=== PATIENT | female | born 1955 | race Caucasian/White ===

== ENCOUNTER → 2016-12-15 | Outpatient (CLI) | payer OTHER | END | disposition home or self-care (01) | LOC: LAB.O 08:28 | PROVIDERS: ATTEND Internal Medicine Hematology & Oncology | DX: C7A.00 Malignant carcinoid tumor of unspecified site (principal) ==

== ENCOUNTER → 2017-05-09 | Outpatient (CLI) | payer OTHER ==
--- NOTE | 2017-05-09 12:54 | MRI ---
EXAM DESCRIPTION: Thoracic Spine w/o Contrast CLINICAL HISTORY: 62 years, Female, UPPER BACK PAIN, PAIN IN THORACIC SPINE , difficulty walking COMPARISON: Plain radiographs the 20th FINDINGS: Sagittal and axial sequences. There is bone marrow edema in T8 and T9 partial compression here. The T8 vertebral body anterior height about 1.3 cm versus about 1.8 cm at T7. Compression of T9 vertebral bodies predominantly midportion which is compressed to about 8 mm versus about 19 mm comparable region at T10 . Some mild bone marrow edema present in T1 without compressive injury identified. This is nonspecific. Other thoracic vertebral bodies and cord have normal signal characteristics. Minimal narrowing and bulge T7-8. The posterior cortex of the inferior T9 vertebral body is buckled about 2 mm with slight flattening of the thecal sac. Other disc spaces within normal limits. IMPRESSION: 1. Subacute compression injuries of T8 and T9, as discussed above. 2. The posterior inferior cortex of T9 is retropulsed about 2 mm with slight flattening of the subarachnoid space. There is also some mild degenerative disc changes particularly T7-8 3. Some nonspecific mild marrow edema T1, without compression, may represent a subclinical injury Electronically signed by: Calixto Lyons MD 05/09/2017 12:54 PM CDT
== END | disposition home or self-care (01) ==
LOC: MRI 09:59
PROVIDERS: ATTEND Family Medicine
DX: M51.34 Other intervertebral disc degeneration, thoracic region (principal)

== ENCOUNTER 2017-05-20 10:14 | Inpatient (IN) | payer OTHER ==
[2017-05-20] MEDS ORDERED: ACETAMINOPHEN W/COD #3 TAB 1 EA TAB PO ONE (10:36)
[2017-05-20] MEDS ORDERED: CYCLOBENZAPRINE HCL 10 MG TAB PO ONE (10:36)
--- NOTE | 2017-05-20 10:50 | ED.PDOC ---
History of Present Illness - General Chief Complaint: Back Pain or Injury Stated Complaint: back pain Time Seen by Provider: 05/20/17 10:36 Source: patient, RN notes reviewed, Vital Signs reviewed, family, EMS Exam Limitations: no limitations - History of Present Illness Initial Comments: Patient presents to ER via EMS due to back pain. She was diagnosed with a compression fracture of T8 & T9 by MRI 2 weeks ago. She has been referred for a kyphoplasty but has not heard back yet. She has noticed progressively worsening back pain extending down into her low back over the past week. She has been having a harder time moving and getting around due to the pain. She denies any difficulty due to weakness or neurological symptoms. She has been taking Tramadol as needed for the pain. Yesterday she took a Tramadol with lunch and then spent the rest of the day and evening in her recliner. When she got up to go to bed the pain was much worse so she took another Tramadol and went to bed. When she woke up today she was unable to get out of bed due to the pain and thus EMS was called. She did take a Tramadol prior to coming to ER. Timing/Duration: 1 week, getting worse Quality/Severity: severe Back Pain Location: T-spine, lumbar spine Back Pain Radiation: buttocks Method of Injury/Prior Injury: other - Compression fractures T8&9 Improving Factors: immobilization Worsening Factors: movement Associated Symptoms: lower back pain, other - No weakness, numbness, tingling or incontinence Allergies/Adverse Reactions: Allergies Penicillins Allergy (Intermediate, Verified 05/20/17 10:30) Sulfamethoxazole w/Trimethoprim [From Bactrim] Allergy (Intermediate, Verified 05/20/17 10:30) Home Medications: Ambulatory Orders Conjugated Estrogens [Premarin] 0.45 mg PO QD 11/26/12 Levothyroxine Sodium [Synthroid] 25 mcg PO DAILY 11/26/12 Pravastatin Sodium 20 mg PO DAILY 11/26/12 Triamterene & Hydrochlorothiaz [Triamterene/Hydrochloroth] 0.5 tab PO DAILY Acetaminophen W/ Codeine [Tylenol W/ CODEINE #3] 1 ea PO Q4HR PRN #15 05/20/17 Cyclobenzaprine HCl [Flexeril] 5 mg PO Q8HR #15 tab 05/20/17 Review of Systems - Review of Systems Constitutional: States: no symptoms reported Respiratory: States: no symptoms reported Cardiology: States: no symptoms reported Gastrointestinal/Abdominal: States: no symptoms reported Genitourinary: States: no symptoms reported Musculoskeletal: States: see HPI, back pain Skin: States: no symptoms reported Neurological: States: no symptoms reported. Denies: numbness, paresthesia, tingling, weakness All other Systems: No Change from Baseline Past Medical History (General) - Patient Medical History Hx Congestive Heart Failure: No Hx Diabetes: No Hx Cancer: Yes - ovarian Surgical History: Hysterectomy, other - Vaccination History Hx Influenza Vaccination: Yes - Social History Hx Tobacco Use: No Hx Alcohol Use: No Hx Substance Use: No Hx Substance Use Treatment: No Hx Depression: No - Activities of Daily Living Hospice Agency (if applicable):: None - Female History Patient is a Female of Child Bearing Age (10 -59 yrs old): No Patient : No Family Medical History - Family History Mother Family History: Unknown Physical Exam - Physical Exam General Appearance: Alert, No apparent distress, Well Developed, Well Groomed, Well Hydrated, Well Nourished, Other - She is laying flat on bed holding pillow , no obvious discomfort while laying still Cardiovascular/Respiratory: normal peripheral pulses Peripheral Pulses: dorsalis pedis,right: 2+, dorsalis pedis,left: 2+ Back Exam: muscle spasm - R lumbar paraspinous muscles, vertebral tenderness - OVer T8 & 9 Extremity Exam: no evidence of injury, normal range of motion, non-tender, no pedal edema, pelvis stable Neurologic: no motor/sensory deficits, alert, normal mood/affect, oriented x 3 Skin Exam: normal color, warm/dry Progress - Progress Progress: 05/20/17 10:52 Suspect slowly progressive worsening of her pain is due to inadequate pain control and muscle spasm. Will start with Tyl #3 and Flexeril to see if gets her symptoms under control. She is agreeable with plan. 05/20/17 11:31 She is feeling better and now able to move around easier. Will D/C how with Rx' s and instructions to take OTC Ibuprofen. Advised to get up and move around more often, not spend hours sitting in a recliner. Departure - Departure Clinical Impression: Spasm of back muscles Compression fracture of thoracic vertebrae, non-traumatic Qualifiers: Encounter type: initial encounter Qualified Code(s): M48.54XA - Collapsed vertebra, not elsewhere classified, thoracic region, initial encounter for fracture Time of Disposition: 11:34 Disposition: Discharge to Home or Self Care Condition: Good Departure Forms: ED Discharge - Pt. Copy, Patient Portal Self Enrollment Instructions: DI for Vertebral Fracture Diet: resume usual diet Activity: increase activity as tolerated Referrals: Ronald Thomas MD [Primary Care Provider] - 1-2 Weeks Prescriptions: Acetaminophen W/ Codeine [Tylenol W/ CODEINE #3] 1 ea PO Q4HR PRN #15 PRN Reason: Moderate To Severe Pain Cyclobenzaprine HCl [Flexeril] 5 mg PO Q8HR #15 tab Home Medications: Ambulatory Orders Conjugated Estrogens [Premarin] 0.45 mg PO QD 11/26/12 Levothyroxine Sodium [Synthroid] 25 mcg PO DAILY 11/26/12 Pravastatin Sodium 20 mg PO DAILY 11/26/12 Triamterene & Hydrochlorothiaz [Triamterene/Hydrochloroth] 0.5 tab PO DAILY Acetaminophen W/ Codeine [Tylenol W/ CODEINE #3] 1 ea PO Q4HR PRN #15 05/20/17 Cyclobenzaprine HCl [Flexeril] 5 mg PO Q8HR #15 tab 05/20/17 Additional Instructions: Ibuprofen 800mg every 8 hours with muscle relaxer.
[2017-05-20] MEDS ORDERED: ONDANSETRON INJ 4 MG/2 ML VIAL IV ONE (11:56)
[2017-05-20] MEDS ORDERED: HYDROmorphone HCL INJ 2 MG/ML VIAL IV ONE (11:56)
[2017-05-20] MEDS ORDERED: SODIUM CHLORIDE 0.9% (FLUSH) 10 ML SYG IV PRN (12:26)
[2017-05-20] MEDS ORDERED: MORPHINE SULFATE INJ 10 MG/ML VIAL IV PRN (12:26)
[2017-05-20] MEDS ORDERED: HYDROcodone 5MG/APAP 325MG 1 EA TAB PO PRN (12:26)
[2017-05-20] MEDS ORDERED: ALUM & MAG HYDROX-SIMETHICONE 30 ML UD PO PRN (12:26)
[2017-05-20] MEDS ORDERED: MAGNESIUM HYDROXIDE 30 ML UD PO PRN (12:26)
[2017-05-20] MEDS ORDERED: ONDANSETRON INJ 4 MG/2 ML VIAL IV PRN (12:26)
--- NOTE | 2017-05-20 12:26 | HP ---
SUPERVISING PHYSICIAN: Balne Marcus M.D. CHIEF COMPLAINT: Back pain. HISTORY OF PRESENT ILLNESS: Ms. Zepeda is a 62 year-old female patient who has a history of significant back pain with compression fractures of the thoracic spine involving T8 and T9. She notes that in this past month she was at the grocery store. She picked up a watermelon and twisted, and then loaded the watermelon again and started having some back pain which continued to worsen. She does have a history of osteoporosis with having a total hysterectomy in her mid 20s. She sees Dr. Thomas and has been referred for a kyphoplasty procedure with the radiology group in [place] but has not heard back to have that schedule made. She has been having an increasing harder time moving and getting around due to the significant pain. The patient denies any recent traumatic events or falls. She denied any weakness or any neurologic symptoms, just severe pain in the mid back. She had been taking Tramadol for the pain and yesterday took a Tramadol at lunch, and spent most of the day and evening in her recliner. When she got back up to go to bed, the pain was much worse so she took another Tramadol and went to bed. She woke up this morning and was unable to move or get out of bed due to the pain, and called 911. She was taken to the Emergency Room for further evaluation. In the Emergency Room, she was found to be without any neurological symptoms and was given pain prescriptions, and was to be discharged home. At discharge, she was unable to get off the stretcher due to the significant amount of pain. Dr. Loving, E. R. physician, requested the patient be placed in Observation for more aggressive pain management until she could have arrangements made to have a kyphoplasty procedure or was able to have better control of her pain prior to going home. She was admitted in stable condition. PAST MEDICAL HISTORY: 1. Osteoporosis. 2. Ovarian cancer at age 21. 3. Kidney stones. PAST SURGICAL HISTORY: 1. Complete hysterectomy. 2. 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 3. Laparoscopic procedure due to multiple abscesses of the abdomen at which time they were found to be due to anastomosis which was redone. HOME MEDICATIONS: 1. Tramadol. ALLERGIES: PENICILLINS AND BACTRIM. FAMILY HISTORY: Father secondary to metastatic prostate cancer. He had cardiovascular disease as well. Mother is from chronic obstructive pulmonary disease and complications from a stroke. 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 She lives in [place] and is . She has been retired now for 10 years. She denies ever smoking and she does not drink or use illicit drugs. REVIEW OF SYSTEMS: CONSTITUTIONAL: Denies any weakness, malaise, fevers, fatigue. RESPIRATORY: Denies any congestion, shortness of breath or cough. CARDIOVASCULAR: Denies any chest pains, pressure, syncopal episodes, palpitations. GASTROINTESTINAL: Denies any nausea, vomiting or diarrhea. GENITOURINARY: Denies any dysuria, hematuria or other urinary symptoms. MUSCULOSKELETAL: As noted in the History of Present Illness, severe back pain. NEUROLOGIC: Denies any numbness, paresthesias, tingling, weakness of the lower extremities. PHYSICAL EXAMINATION: VITAL SIGNS: Temperature 98.7, pulse 72, blood pressure 125/76, respirations 18 , satting 95% on room air. Admission weight 60.14 kg. GENERAL: The patient appears to be well-nourished and well-hydrated, well kempt and in no acute distress on examination on the Medical/Surgical floor after having received Dilaudid for pain control. HEENT: Tympanic membranes are clear bilaterally. Oropharynx is pink and moist without any lesions. NECK: There is no jugular venous distention. Neck was supple with full range of motion, but non-tender. CHEST: Lungs are clear to auscultation bilaterally without any rhonchi, wheezing or rales. CARDIOVASCULAR: Regular rate and rhythm without appreciable murmurs, gallops, or rubs. ABDOMEN: Soft, non-tender. Positive bowel sounds. BACK: Obvious muscle spasms over the right sided lumbar paraspinous muscles with some notable vertebral tenderness overlying T8 and T9. EXTREMITIES: No clubbing, cyanosis or edema. NEUROLOGIC: No motor or sensory deficits. She is alert and oriented times three. LABORATORY: There are no laboratory studies available for review. RADIOLOGY: Review of previous MRI of the thoracic spine completed on 05/09/17 per radiology interpretation showed a subtle acute compression injury of T8 and T9 with a posterior anterior cortex of T9 retropulsed about 2 mm with slight flattening of the subarachnoid space. There is also some mild degenerative changes particularly in T7 and T8. There is also noted a nonspecific mild narrowing and edema of T1 without any compression. May represent a subclinical injury. ASSESSMENT: 1. Intractable pain secondary to acute compression fractures of T8 and T9 secondary to osteoporosis with no mention of traumatic injuries. 2. Osteoporosis. 3. History of kidney stones. PLAN: The patient will be placed in Observation tonight to assist with better management of her pain control. She has had an appointment with Dr. Thomas who sent radiographic studies and MRI to the radiology group in [place]. I believe Dr. Rhoades was consulted on the MRI who recommended that she would be a good candidate for kyphoplasty. The family is waiting for a call back as to when they can schedule the kyphoplasty. They have given me the number of the Nurse Practitioner who works for the radiology group, Britta Olivas. Her number is [phone]. I will try to touch base with her tomorrow to see if they can locate the images and reports that were mailed to them within the last week, and hopefully expedite the procedure to have the patient scheduled for a kyphoplasty or transferred given that she now has debilitating pain requiring hospitalization. Will provide her pain management with Dilaudid as she refuses morphine, says it makes her nauseated as she has experienced this in the past with previous surgeries. I will also start her on some Toradol initially with 30 mg and give her scheduled every 6 hours for at least 3 doses. I will also provide her with a muscle relaxant to include Robaxin. Will plan to closely observe neurologically as well and hopefully be able to discharge tomorrow with arrangements for kyphoplasty. Once the patient is able to be discharged, she will continue to be followed by Dr. Thomas in the outpatient setting. Until then , will continue to monitor and treat appropriately. #[id number] [facility]
[2017-05-20] MEDS: IV SET AND CAP CHANGE INJ INJ SCH (12:57)
[2017-05-20] MEDS ORDERED: KETOROLAC TROMETHAMINE INJ 30 MG/ML VIAL IV ONE (13:16)
[2017-05-20] MEDS: HYDROmorphone HCL INJ 2 MG/ML VIAL IV PRN ×2 (13:31→21:56)
[2017-05-21] MEDS ORDERED: KETOROLAC TROMETHAMINE INJ 30 MG/ML VIAL ONE (02:50)
[2017-05-21] MEDS: KETOROLAC TROMETHAMINE INJ 30 MG/ML VIAL IV SCH ×5 (03:01→14:58)
[2017-05-21] MEDS: HYDROmorphone HCL INJ 2 MG/ML VIAL IV PRN (08:21)
[2017-05-21] MEDS ORDERED: HYDROcodone/IBUPROFEN 7.5/200 1 EA TAB PO ONE (14:46)
[2017-05-21] MEDS: HYDROcodone/IBUPROFEN 7.5/200 1 EA TAB PO PRN ×2 (14:58→21:13)
[2017-05-21] MEDS: METHOCARBAMOL 750 MG TAB PO PRN ×2 (14:58→21:13)
[2017-05-22] MEDS: HYDROcodone/IBUPROFEN 7.5/200 1 EA TAB PO PRN ×4 (07:44→20:45)
[2017-05-22] MEDS: METHOCARBAMOL 750 MG TAB PO PRN ×4 (07:44→20:45)
--- NOTE | 2017-05-22 18:56 | PN ---
DATE: 05/22/17 SUPERVISING PHYSICIAN: Blane Marcus M.D. SUBJECTIVE: The patient is lying in her hospital bed. She is having a very difficult time getting up to the side of the bed. At rest, her pain is tolerable, but with any movement her pain increases substantially. She requires almost full assistance just to sit on the side of the bed or to transfer to a bedside commode. OBJECTIVE: VITAL SIGNS: She is afebrile, heart rate 82 but has gone up as high as 94, blood pressure 132/72, respiratory rate with exertion gets up to 22 but is usually about 16 to 18 breaths per minute, and her O2 sat is 96% on room air. CARDIAC: Regular rate and rhythm. RESPIRATORY: Clear to auscultation bilaterally. ABDOMEN: Soft, nondistended, non-tender. Bowel sounds are positive. NEUROLOGIC: She is awake, alert and oriented times three. LABORATORY: There are no labs or films to report at this time. ASSESSMENT: 1. Intractable pain secondary to acute compression fracture of T8 and T9 secondary to osteoporosis. 2. Osteoporosis. 3. History of kidney stones. PLAN: The patient has been in an extreme amount of pain. Due to safety issues as well as comfort measures, she has been changed from Observation to Inpatient. She is having a very difficult time even sitting on the side of the bed without assistance. She is unable to move her rolling walker forward due to her pain. She is scheduled to have kyphoplasty at [facility] in [place] on Sunday at 9:00 AM. At this point, it would be unsafe for her to go home due to her debilitating pain as well as inability to transfer or reposition self without a great deal of pain. The plan is to release her early morning to go to [facility] in [place] for her preoperative evaluation and then she will have the kyphoplasty per Dr. Orozco. We will monitor her closely and followup as needed. I have explained all of these things to the patient and they have agreed with the present plan of care. Dr. Marcus is the collaborating physician available for consultation. #[id number] [facility]
[2017-05-22] MEDS: DOCUSATE SODIUM 100 MG CAP PO SCH (20:04)
[2017-05-23] MEDS: HYDROcodone/IBUPROFEN 7.5/200 1 EA TAB PO PRN ×5 (02:50→20:38)
[2017-05-23] MEDS: METHOCARBAMOL 750 MG TAB PO PRN ×5 (02:50→20:38)
--- NOTE | 2017-05-23 08:37 | PN ---
DATE: 05-21-17 SUPERVISING PHYSICIAN: Blane Marcus M.D. SUBJECTIVE: The patient has fairly well control of her pain with Dilaudid, although she has not been up much to any extent except to go to the bathroom which was apparently quite difficult. I did talk to Nancy Olivas, Nurse Practitioner, and her last scheduled kyphoplasty after Dr. Orozco reviewed her films that she was a candidate for kyphoplasty. She is scheduled to have it done at 9 o'clock on Sunday at [facility] at 8:30 morning to have preoperative work done. . OBJECTIVE: VITAL SIGNS: Temperature 97.8, pulse 63, blood pressure 112/68, respirations 18, saturation 97% on room air. I&O: Negative balance of 780 with 360 in and 1140 out. Weight 6.0 kg. CHEST: Lungs are clear to auscultation bilaterally. HEART: Regular rate and rhythm. ABDOMEN: Soft, non-tender. Positive bowel sounds. EXTREMITIES: No cyanosis, clubbing, or edema. She is able to move all extremities ad raymundo. NEUROLOGIC: She is alert and oriented times three. There are no notable neurological deficits noted. LABORATORY: There are no laboratory studies completed and no ordered radiology. ASSESSMENT: 1. Intractable pain secondary to acute compression fracture of T8 and T9 secondary to osteoporosis with no mention of traumatic injury, awaiting kyphoplasty scheduled on Sunday at [facility] at 9 o'clock. 2. Osteoporosis. 3. History of kidney stones. PLAN: Discharge patient within the next 24 to 48 hours on oral pain medication that is in process. I have changed her to oral pain medication with Vicoprofen. She is encouraged to try to ambulate as possible. I feel like she should be able to go home tomorrow, her is a physical therapist and able to provide her a great deal of help at home. Again, she is set to have a kyphoplasty at [facility] with Dr. Orozco this coming Sunday at 9 o' clock. She is to be at [facility] at the [facility] at 8:30 morning for her preoperative work. Nancy Olivas is the Nurse Practitioner for the radiology group. Her number is [phone]. I did talk to her personally and we want to make sure the patient is there for her preoperative work on at 8:30. Hopefully, we can discharge the patient tomorrow on Vicoprofen. She has gotten several doses of Toradol which has helped as well. We will anticipate discharge tomorrow. Until then, we will continue to monitor the patient closely and treat appropriately. #[id number] [facility]D
--- NOTE | 2017-05-23 09:30 | PN ---
SUPERVISING PHYSICIAN: Blane Marcus MD DATE: 05/23/17 SUBJECTIVE: The patient is lying in her hospital bed. At rest, she has no complaints, but again she complains of a very difficult time moving around. She said it actually took her about 30 minutes to get from her bed to her bedside commode. During her time of transfer, she has an extremely difficult time of moving due to the pain. Otherwise, no complaints of chest pain, nausea , vomiting or shortness of breath. OBJECTIVE: VITAL SIGNS: Afebrile. Heart rate 68. Blood pressure 99/64. Respiratory rate 16. O2 saturation 98% on room air. LUNGS: Clear to auscultation bilaterally. CARDIAC: Regular rate and rhythm. ABDOMEN: Soft, nontender, nondistended. Bowel sounds are positive. EXTREMITIES: No cyanosis, clubbing or edema. NEUROLOGIC: Awake, alert and oriented times three. LABORATORY: There are no labs or radiology reports for today. ASSESSMENT: 1. Intractable pain secondary to acute compression fracture of T8 and T9 secondary to osteoporosis. 2. Osteoporosis. 3. History of kidney stones. PLAN: We will continue present supportive care including full assist in her transfers and ambulation. Due to safety issues, we will continue to keep her in the hospital. She will be discharged in the morning to go to [facility] in [place] pending kyphoplasty on Sunday. She is to be the [facility] at [facility] at 8:30 in the morning for her preoperative laboratory. Otherwise, we will continue to monitor the patient closely and followup as needed. Dr. Marcus is the collaborating physician and available for consultation. #[id number] [facility]
[2017-05-23] MEDS: IV SET AND CAP CHANGE INJ INJ SCH (12:56)
[2017-05-23] MEDS: DOCUSATE SODIUM 100 MG CAP PO SCH (20:39)
[2017-05-24] MEDS: METHOCARBAMOL 750 MG TAB PO PRN ×3 (01:58→10:02)
[2017-05-24] MEDS: HYDROcodone/IBUPROFEN 7.5/200 1 EA TAB PO PRN ×3 (01:58→10:02)
[2017-05-24 11:03] VITALS: BP 106/67; TEMP 97.6; O2SAT 97
--- NOTE | 2017-05-24 17:00 | DS ---
SUPERVISING PHYSICIAN: Blane Marcus M.D. DISCHARGE DIAGNOSIS: 1. Intractable pain secondary to acute compression fracture of T8 and T9 secondary to osteoporosis. 2. Osteoporosis. 3. History of kidney stones. HISTORY OF PRESENT ILLNESS: This is a 62 year-old female who had a history of significant back pain with compression fractures of the thoracic spine and involving T8 and T9. This happened about a month ago while at the grocery store and she picked up a watermelon and twisted incorrectly, and had some back pain at that time. She has a significant history of osteoporosis having a total hysterectomy in her mid 20s. She sees Dr. Thomas and had been referred for kyphoplasty with the radiology group in [place], but at the time of her admission, she had not heard back as to when her kyphoplasty was scheduled. Over the last month, her pain had worsened to the point that she had a very difficult time with even transfers. She could not sit for any length of time, even in spite of pain medications, her functioning decreased daily. On the morning of admission, she could not move to get out of bed and 911 was called. She was brought to the Emergency Room and evaluated. Initially she was going to be discharged home but then she could not get up off of the stretcher, so the patient was placed in Observation for aggressive pain management as well as to get the kyphoplasty procedure scheduled. HOSPITAL COURSE: In the hospital, it became increasingly difficult for her to move in the bed. It took her actually 30 minutes to get out of the bed and just up to the bedside commode. At rest, she had minimal pain but with any movement her pain was very severe. The radiology group at [facility] in [place] was contacted and she was scheduled to have kyphoplasty on Sunday, 06/01, and she was to be discharged home until the procedure could be completed. On the day that she was to be discharged, she could not get out of bed except with maximum assistance. Physical Therapy found that she was having a very difficult time even getting up to the side of the bed. Due to increasing pain as well as safety issues, as well as decreased functionality, she was kept in the hospital. Initially there were some issues with the approval of getting the kyphoplasty. She was to be discharged earlier this morning to do preoperative testing and have the kyphoplasty in the morning, but was delayed due to an insurance coverage. She has now gotten approval for the procedure and she will be discharged home, but she will be going straight to [facility] in [place] for the procedure to be done tomorrow morning. DISCHARGE PLAN: The patient will be discharged home in fair condition. She has been discharged with some Vicoprofen as well as some muscle relaxers. She is to complete her scheduled kyphoplasty and followup with Dr. Thomas as needed. If she has any further problems, she is to contact Dr. Thomas's office or return to the hospital. DISCHARGE MEDICATIONS: 1. Docusate sodium. 2. Vicoprofen. 3. Robaxin. Dr. Marcus is the collaborating physician and available for consultation. #[id number] [facility]
== END 2017-05-24 12:40 | disposition home or self-care (01) | DRG 544 ==
LOC: ER 10:14 → MS 12:25 → INTOOBSV 12:25 → OBSVTOIN 05-22 15:38
PROVIDERS: ADMIT Nurse Practitioner Family; ATTEND Nurse Practitioner Family
DX: M80.08XA Age-related osteoporosis with current pathological fracture, vertebra(e), initial encounter for fracture (principal); Z85.43 Personal history of malignant neoplasm of ovary; Z88.0 Allergy status to penicillin; Z88.1 Allergy status to other antibiotic agents

== ENCOUNTER → 2017-05-28 | Outpatient (CLI) | payer OTHER ==
--- NOTE | 2017-05-29 17:20 | MRI ---
EXAM DESCRIPTION: Lumbar Spine w/o Contrast CLINICAL HISTORY: LUMBAR RADICULOPATHY COMPARISON: MRI thoracic spine 05/09/2017 TECHNIQUE: Multiplanar images of the lumbar spine were submitted without the administration of contrast FINDINGS: There is normal alignment and lordosis in the lumbar spine. There is minimal angulation anteriorly at T12-L1. There is diffuse fibrofatty infiltration of the marrow. There is moderate compression at L1 which is new as compared to the previous study. Edema is present in the vertebral body. Minimal retropulsion of the posterior cortex. Conus appears unremarkable and ends at the level of L1. T12-L1: No T2 axial imaging was performed at the level of the fracture or at the T12-L1 disc interspace. There is no evidence to suggest HNP at the T12-L1 level. The mild retropulsion does not result in significant central canal stenosis. L1-L2: Mild disc bulging and mild facet arthropathy with flattening of the anterior aspect of the thecal sac. L2-L3: Mild disc bulging and facet arthropathy with a broad-based shallow central disc bulge. There is flattening of the anterior aspect of the thecal sac without central canal or neural foraminal narrowing. L3-L4: Generalized bulging of the disc and facet arthropathy without significant central canal or neural foraminal narrowing. L4-L5: Mild facet arthropathy without significant central canal or neural foraminal narrowing. No HNP. L5-S1: No evidence of HNP or central canal stenosis. 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 IMPRESSION: Moderate compression at L1 with minimal retropulsion of fracture fragments but no significant central canal stenosis. Fracture is new as compared to the previous examination Minor degenerative changes as described Electronically signed by: Dorene Kelly 05/29/2017 5:18 PM CDT
== END ==
LOC: MRI 13:12
PROVIDERS: ATTEND Family Medicine
DX: S22.080K Wedge compression fracture of T11-T12 vertebra, subsequent encounter for fracture with nonunion (principal); M54.17 Radiculopathy, lumbosacral region

== ENCOUNTER → 2017-06-15 | Outpatient (CLI) | payer OTHER | END | disposition home or self-care (01) | LOC: GMAB 10:33 | PROVIDERS: ATTEND Family Medicine | DX: S22.060K Wedge compression fracture of T7-T8 vertebra, subsequent encounter for fracture with nonunion (principal); M80.08XG Age-related osteoporosis with current pathological fracture, vertebra(e), subsequent encounter for fracture with delayed healing ==

== ENCOUNTER → 2017-06-20 | Outpatient (CLI) | payer OTHER ==
--- NOTE | 2017-06-21 09:54 | MRI ---
EXAM DESCRIPTION: Lumbar Spine w/o Contrast CLINICAL HISTORY: FRACTURE COMPRESSION. Low back pain. Recent kyphoplasty. Injured lifting watermelon. COMPARISON: MRI lumbar spine 05/28/2017 TECHNIQUE: MRI of the lumbar spine is performed according to our usual protocol with axial and sagittal multi sequence imaging. FINDINGS: The designated L5-S1 disc space is on axial T2 image 3. Since the prior exam, there are interval changes of vertebral body augmentation at L1. There is an incompletely imaged acute compression fracture along the superior endplate of T12 with suspected 30% loss of stature. Bony retropulsion cannot be completely evaluated due to the vertebral body extending beyond the [id number]. Also demonstrated is a mild compression fracture of the L2 vertebral body with up to 20% loss of stature along the inferior endplate. Minimal bony retropulsion. Alignment appears maintained. The conus medullaris terminates normally. Perineural cysts at the sacral levels are again demonstrated. L1-2: Mild disc desiccation with minimal posterior disc bulge. Mild facet hypertrophy. No spinal canal or neural foraminal stenosis. L2-3: Mild disc desiccation. Disc height is preserved. Mild facet hypertrophy. Tiny posterior annular tear, 2 mm posterior disc bulge and 1.5 mm broad-based central disc protrusion with no spinal canal or neural foraminal stenosis. L3-4: Disc desiccation. Mild facet hypertrophy with ligamentum flavum thickening. No spinal canal or neural foraminal stenosis. L4-5: Disc desiccation. Mild facet hypertrophy with ligamentum flavum thickening. Minimal posterior disc bulge with no spinal canal or neural foraminal stenosis. L5-S1: Disc desiccation. Mild facet hypertrophy. Minimal posterior disc bulge with no spinal canal or neural foraminal stenosis. IMPRESSION: 1. Acute compression fracture of the T12 vertebral body along the superior endplate which is incompletely imaged. Consider MRI thoracic spine prior to interventional planning. 2. Also demonstrated is a new acute compression fracture along the inferior endplate of L2 with minimal bony retropulsion. This would be amenable to vertebral body augmentation. 3. Compression fracture of the L1 vertebral body is now post augmentation. 4. Stable mild multilevel disc degeneration and facet degenerative changes. Electronically signed by: Pineda Camarena MD 06/21/2017 9:53 AM CDT
== END ==
LOC: MRI 12:34
PROVIDERS: ATTEND Family Medicine
DX: S32.010D Wedge compression fracture of first lumbar vertebra, subsequent encounter for fracture with routine healing (principal); S32.020A Wedge compression fracture of second lumbar vertebra, initial encounter for closed fracture

== ENCOUNTER → 2017-07-26 | Outpatient (CLI) | payer OTHER ==
--- NOTE | 2017-07-26 10:15 | RAD ---
EXAM DESCRIPTION: Femur,Left CLINICAL HISTORY: 62 years, Female, PN IN LEFT HIP COMPARISON: FINDINGS: Two views of the left femur do not demonstrate fracture or dislocation. Some mild degenerative narrowing in the left hip joint with spurring superior laterally. Some mild degenerative changes also noted in the knee. IMPRESSION: No fracture or dislocation. Mild degenerative change. Electronically signed by: Calixto Lyons MD 07/26/2017 10:14 AM CDT
== END | disposition home or self-care (01) ==
LOC: RAD 09:02
PROVIDERS: ATTEND Orthopaedic Surgery
DX: M25.552 Pain in left hip (principal)

== ENCOUNTER → 2018-01-01 | Outpatient (CLI) | payer OTHER ==
--- NOTE | 2018-01-01 15:20 | CT ---
EXAM DESCRIPTION: Abdomen/Pelvis w/wo Contrast: Computed Tomography. CLINICAL HISTORY: R31.0 GROSS HEMATURIA COMPARISON: CT abdomen and pelvis 05/04/2016. TECHNIQUE: Spiral-axial scans at 5.0 mm intervals through the abdomen and pelvis before and after standard dose nonionic IV contrast. No oral contrast. Coronal and sagittal 2.0 mm reconstructions. 5 mm Delayed helical-axial scans, liver through the pubic symphysis. No adverse reactions. Total Exam DLP 1080.64 mGy - cm. This exam was performed according to our departmental CT dose-optimization program which includes automated exposure control, adjustment of the mA and/or kV according to patient size and/or use of iterative reconstruction technique; to reduce radiation dose to as low as reasonably achievable (ALARA). FINDINGS: Kidneys and Ureters: Mild to moderate hydronephrosis in the left kidney with small minimally dense 2 mm stones in the upper collecting system and the mid collecting system. No perinephric edema. Dilated right renal pelvis. 2 partially obstructing stones in the proximal left ureter approximately 5 cm from the mid right renal pelvis. Stones are stacked with the inferior stone 6.4 mm and the superior stone 3.8 mm. This segment of ureter is dilated with periureteral edema. No contrast in the remainder of the ureter to the urinary bladder. Minimal IV contrast in the right ureter which is normal caliber with no periureteral edema. 2 millimeter radiodense stone in the inferior collecting system. No hydronephrosis or perinephric edema on the right with 1 cm cyst upper cortex. Pelvic Organs: No radiodense stones in the urinary bladder. Minimal distended. Minimal contrast in the bladder on the delayed images. Vaginal cuff unremarkable. No fluid in the cul-de-sac. Ovarian tissue not visualized. Lung bases and pleura: Negative. Liver, Stomach, Spleen, Adrenal Glands: Normal size and enhancement. Pancreas, Gallbladder, Ducts: Surgical clips in the gallbladder fossa with no fluid. Minimal ectasia of the duct. Pancreas is negative. Mesentery: Fatty stranding around the proximal left ureter and left renal pelvis. No free air or free fluid. Aorta: Moderate atherosclerotic calcification and minimal ectasia. Small Bowel: Gas and fluid. [id number] anastomosis of the distal ileum in the transverse colon with no evidence of obstruction. Terminal Ileum/Cecum: Previous resection. Colon: The proximal transverse colon just distal to the anastomosis is impressing on the midline linea alba at the umbilicus, with small diastases, stable since the prior study with no definite herniation and no obstruction. Diverticula in the descending colon and sigmoid. Minimal redundancy of the sigmoid colon. Spine and Bony Pelvis: Decreased bone density. Prior augmentation of compression fractures at T12, L1, and L2. Compression fractures and augmentation have been performed since the prior study. Loss of bone density bilateral femoral heads and disc space narrowing with sclerosis in the greater trochanter of the left femur this has progressed since the prior study. Abdominal Wall/Back Soft Tissues: Slight protrusion of the proximal colon at the umbilicus as previously noted. IMPRESSION: 1. 2 stones stacked in the proximal left ureter, with at least partial obstruction. Inferior stone measures 6.4 mm. Proximal left hydroureter and mild to moderate left hydronephrosis. Other much smaller stones in the left kidney. Cyst in the right kidney with small radiodense stones in the kidney; no stones in the ureter. Stable since the prior study. 2. Prior resection of the terminal ileum and proximal colon with [id number] anastomosis at the proximal transverse colon. This proximal segment protrudes into diastases of the linea alba at the umbilicus but no definite herniation. Stable since the prior study. No mass or obstruction. Particularly in the distal colon with no evidence of complications. 3. Progressive bone density loss in the spine pelvis and hips since the prior study with compression fractures T12, L1, and L2 and vertebral body augmentation. Electronically signed by: Hakan Alexander MD 01/01/2018 3:19 PM [employer]
== END ==
LOC: CT 08:02
PROVIDERS: ATTEND Urology
DX: R31.0 Gross hematuria (principal); N20.2 Calculus of kidney with calculus of ureter; Z87.442 Personal history of urinary calculi

== ENCOUNTER → 2018-02-25 | Outpatient (CLI) | payer OTHER ==
--- NOTE | 2018-02-26 15:09 | RAD ---
EXAM DESCRIPTION: KUB CLINICAL HISTORY: CALCULUS OF URETER COMPARISON: CT abdomen January 01, 2018 TECHNIQUE: KUB FINDINGS: There is an unremarkable bowel gas pattern. Clips from previous cholecystectomy. Methacrylate in the vertebral bodies from treatment for compression fractures. Bones appear osteoporotic. Prominent liver. No other mass or visceromegaly. Clinical history is calculus of the ureter. There are calcifications in the left pelvis. One is rounded below the ischial spine probably a phlebolith. The other areas somewhat elongate and could represent a distal ureteral calculus 6 mm. Question additional tiny calculus just above this level. Previous CT showed two stones in the proximal left ureter. These may have progressed distally. IMPRESSION: Calcifications in the left pelvis, one or two of which could be distal ureteral stones. Electronically signed by: Say Unger MD 02/26/2018 3:08 PM CDT
== END ==
LOC: RAD 13:51
PROVIDERS: ATTEND Urology
DX: N20.1 Calculus of ureter (principal)

== ENCOUNTER → 2018-03-06 | Outpatient (CLI) | payer OTHER | LOC: LAB.O 09:02 | PROVIDERS: ATTEND Internal Medicine Hematology & Oncology | DX: C7A.022 Malignant carcinoid tumor of the ascending colon (principal) ==

== ENCOUNTER → 2018-04-17 | Outpatient (CLI) | payer OTHER ==
--- NOTE | 2018-04-18 17:14 | MAM ---
EXAM DESCRIPTION: 3D Screening BILATERAL : Digital Mammography. CLINICAL HISTORY: 63 years Female SCREENING . No complaints. Personal history of ovarian cancer. No family history of breast cancer. Childbirth. Hysterectomy. HRT 5 or more years ago... COMPARISON: 2-D digital screening bilateral study 02/09/2016. No prior reports available. TECHNIQUE: Bilateral CC and MLO projection full-field images, 3-D tomosynthesis digital mammographic technique. CAD not utilized. FINDINGS: The breast parenchymal density pattern is: Heterogeneously dense breast tissue, which may obscure small masses. No skin thickening or nipple retraction. Bilateral solitary microcalcifications. No focal, stellate mass or density, focal asymmetry , and no suspicious microcalcifications bilaterally. Stable mammograms compared to prior study, taking into account differences in mammographic technique IMPRESSION: BI-RADS CATEGORY: 2 - BENIGN FINDINGS. FOLLOW UP: Routine digital bilateral screening, one year interval from April 2018. Written communication explaining the IMPRESSION and follow-up, will be mailed to the patient and referring health care provider. According to the [employer], yearly mammograms are recommended starting at age 40 and continuing as long as a woman is in good health. Any breast change noted on a breast self-exam should be reported promptly to the patient's healthcare provider. Breast MRI is recommended for women with an approximately 20-25% or greater lifetime risk of breast cancer, including women with a strong family history of breast or ovarian cancer and women who have been treated for Hodgkin's disease. A negative mammographic report should not delay tissue diagnosis in patients with significant clinical history or physical findings. Extremely dense breast tissue limits the sensitivity of digital mammography. Electronically signed by: Hakan Alexander MD 04/18/2018 5:13 PM CDT
== END ==
LOC: MAMMO 09:30
PROVIDERS: ATTEND Family Medicine
DX: Z12.31 Encounter for screening mammogram for malignant neoplasm of breast (principal)

== ENCOUNTER → 2018-04-30 | Outpatient (CLI) | payer OTHER | LOC: GMAB 10:48 | PROVIDERS: ATTEND Family Medicine | DX: Z00.01 Encounter for general adult medical examination with abnormal findings (principal) ==

== ENCOUNTER 2018-05-24 08:46 | Emergency (ER) | payer OTHER ==
[2018-05-24 09:03] VITALS: TEMP 97.8
[2018-05-24] MEDS ORDERED: NEOMYCIN-BACITRACIN-POLYMYXIN 0.9 GM UD TOP ONE (09:18)
[2018-05-24] MEDS ORDERED: KETOROLAC TROMETHAMINE INJ 60 MG/2 ML VIAL IM ONE (09:18)
--- NOTE | 2018-05-24 09:22 | ED.PDOC ---
History of Present Illness - General Chief Complaint: Upper Extremity Injury Time Seen by Provider: 05/24/18 09:09 Source: patient, family Exam Limitations: no limitations - History of Present Illness Initial Comments: patient comes with pain and injury to the left knee and left shoulder. Patient was walking tripped on a curb and fell over hitting her left side. Patient does sever from osteoporosis and currently is undergoing treatment with Forteo. Patient suffered 5 vertebral compression fractures last year. She received kyphoplasty for those areas and currently has no back pain. Patient has no other acute complaints and is otherwise healthy. Occurred: just prior to arrival Pain - Upper Extremity: severe: Shoulder, left Method of Injury: fell Improving Factors: nothing Worsening Factors: movement Allergies/Adverse Reactions: Allergies Penicillins Allergy (Intermediate, Verified 05/20/17 10:30) Sulfamethoxazole w/Trimethoprim [From Bactrim] Allergy (Intermediate, Verified 05/20/17 10:30) Home Medications: Ambulatory Orders Docusate Sodium [Colace] 100 mg PO BEDTIME 05/23/17 HYDROcodone/IBUPROFEN 7.5/200 [Vicoprofen] 1 ea PO Q4H PRN 05/23/17 Methocarbamol [Robaxin] 750 mg PO Q4H PRN #30 tablet 05/23/17 Acetaminophen W/ Codeine [Tylenol W/ CODEINE #3] 1 - 2 ea PO TID PRN 4 Days #24 05/24/18 Review of Systems - Review of Systems Constitutional: States: no symptoms reported. Denies: chills, diaphoresis, fever, weakness EENTM: States: no symptoms reported Respiratory: States: no symptoms reported Cardiology: States: no symptoms reported Gastrointestinal/Abdominal: States: no symptoms reported Genitourinary: States: no symptoms reported Musculoskeletal: States: see HPI Skin: States: no symptoms reported Past Medical History (General) - Patient Medical History Hx Seizures: No Hx Stroke: No Hx Asthma: No Hx of COPD: No Hx Congestive Heart Failure: No Hx Pacemaker: No Hx Hypertension: No Hx Diabetes: No Hx Cancer: Yes - ovarian Hx MRSA: No - Vaccination History Hx Tetanus, Diphtheria Vaccination: Yes Hx Influenza Vaccination: No Hx Pneumococcal Vaccination: No Immunizations Up to Date: No - Social History Hx Tobacco Use: No Hx Chewing Tobacco Use: No Hx Alcohol Use: No Hx Substance Use: No Hx Substance Use Treatment: No Hx Depression: No Feels Threatened In Home Enviroment: No Feels Threatened In a Relationship: No Hx Physical Abuse: No Hx Emotional Abuse: No Hx Suspected Abuse: No - Female History Patient is a Female of Child Bearing Age (10 -59 yrs old): No Patient : No Family Medical History - Family History Mother Family History: Unknown Hx Family Asthma: No Hx Family Congestive Heart Failure: No Hx Family Hypertension: No Hx Family Stroke: Yes Hx Cardiac Disease: No Hx Family Diabetes: No Hx Family Cancer: No Father Living Status: Hx Family Asthma: No Hx Family Congestive Heart Failure: No Hx Family Hypertension: No Hx Family Stroke: No Hx Cardiac Disease: Yes Hx Family Diabetes: No Hx Family Cancer: Yes Physical Exam - Physical Exam General Appearance: Alert, Obvious distress Eyes, Ears, Nose, Throat Exam: PERRL/EOMI, normal ENT inspection, TMs normal, pharynx normal Neck: non-tender, full range of motion, supple Cardiovascular/Respiratory: regular rate, rhythm, no M/R/G, normal peripheral pulses, no JVD, normal breath sounds Abdominal Exam: non-tender, no organomegaly Back Exam: normal inspection, no vertebral tenderness Shoulder Exam: swelling - Pain at the proximal head of the humerus with arm braced at side Elbow/Forearm Exam: normal inspection, non-tender, no evidence of injury Wrist Exam: normal inspection, non-tender, no evidence of injury Hand Exam: normal inspection, non-tender, no evidence of injury Neuro/Tendon: normal sensation Mental Status: alert, oriented x 3 Comments: Lower extremity: Patient has abrasion to L knee with swelling and pain but good flexion and extension no gross deformity. Normal sensation and normal movement. Progress - Progress Progress: 05/24/18 09:44 Patient Name: JUAN LOVING Gender: Female Date of : 1955 Referring Physician: BONIFACIO DAVALOS Organization: [facility] Accession Number: [id number] Requested Date: May 24, 2018 09:00 Report Status: Final Requested Procedure: 1 Procedure Description: Knee,Left 2 or More Views Modality: CR Findings Reporting MD: Say Unger Fellow MD: Not available Dictation Time: Uniform Cap Operator: Not available Production Support Supervisor Date: EXAM DESCRIPTION: Knee,Left 2 or More Views CLINICAL HISTORY: 63 years, Female, trauma COMPARISON: None TECHNIQUE: Three views of the left knee FINDINGS: Bones appear osteopenic with prominent trabecular pattern. Normal appearance of medial and lateral compartments on frontal view. Lateral view shows normal position of the patella. Fracture of the lower pole of the patella seen on the lateral view with overlying soft tissue swelling. The gap at the fracture site anteriorly measures 2 mm. Superior patellar enthesophyte is present. No suprapatellar knee joint effusion. Normal contour of quadriceps and patellar tendons. No abnormal patellar tilt or subluxation on patellar sunrise view. Patellar fracture is not seen on the sunrise patellar view.D IMPRESSION: Fractured lower pole of the patella. Patient Name: JUAN LOVING Gender: Female Date of : 1955 Referring Physician: BONIFACIO DAVALOS Organization: [facility] Accession Number: [id number] Requested Date: May 24, 2018 08:58 Report Status: Final Requested Procedure: 1 Procedure Description: Shoulder,Left 2 or More Views Modality: CR Findings Reporting MD: Tj Escamilla Fellow MD: Not available Dictation Time: Uniform Cap Operator: Not available Production Support Supervisor Date: Procedure: XR left SHOULDER 2 OR MORE VIEWS Exam Date: 05/24/2018 Ordering Provider: BONIFACIO DAVALOS Clinical Indication: trauma Comparison: None Findings/impression: Minimally displaced fracture involving the medial aspect of the neck of the left humerus. No other fracture or dislocation. Patient states MSO4 makes her violently ill and Toradol was given for pain and L arm placed in sling. 05/24/18 09:[address] Castro and he looked at films. He states to keep in sling , pain control, and follow up in clinic as outpatient. No reduction needed at this time. Departure - Departure Clinical Impression: Fracture of humerus neck Qualifiers: Encounter type: initial encounter Fracture type: closed Laterality: left Qualified Code(s): S42.212A - Unspecified displaced fracture of surgical neck of left humerus, initial encounter for closed fracture Patella fracture Qualifiers: Encounter type: initial encounter Fracture type: closed Fracture morphology: unspecified fracture morphology Fracture alignment: nondisplaced Laterality: left Qualified Code(s): S82.002A - Unspecified fracture of left patella, initial encounter for closed fracture Disposition: Discharge to Home or Self Care Condition: Good Departure Forms: ED Discharge - Pt. Copy, Patient Portal Self Enrollment Instructions: DI for Arm Pain, DI for Humeral Fracture Diet: regular diet Activity: increase activity as tolerated, no pushing/pulling with affected limb Referrals: VIVIANA CASTRO MD [Primary Care Provider] - 1-2 Weeks Prescriptions: Acetaminophen W/ Codeine [Tylenol W/ CODEINE #3] 1 - 2 ea PO TID PRN 4 Days #24 PRN Reason: Pain Home Medications: Ambulatory Orders Docusate Sodium [Colace] 100 mg PO BEDTIME 05/23/17 HYDROcodone/IBUPROFEN 7.5/200 [Vicoprofen] 1 ea PO Q4H PRN 05/23/17 Methocarbamol [Robaxin] 750 mg PO Q4H PRN #30 tablet 05/23/17 Acetaminophen W/ Codeine [Tylenol W/ CODEINE #3] 1 - 2 ea PO TID PRN 4 Days #24 05/24/18 Additional Instructions: follow up with Dr. Castro in 2-3 days.
--- NOTE | 2018-05-24 09:32 | RAD ---
EXAM DESCRIPTION: Knee,Left 2 or More Views CLINICAL HISTORY: 63 years, Female, trauma COMPARISON: None TECHNIQUE: Three views of the left knee FINDINGS: Bones appear osteopenic with prominent trabecular pattern. Normal appearance of medial and lateral compartments on frontal view. Lateral view shows normal position of the patella. Fracture of the lower pole of the patella seen on the lateral view with overlying soft tissue swelling. The gap at the fracture site anteriorly measures 2 mm. Superior patellar enthesophyte is present. No suprapatellar knee joint effusion. Normal contour of quadriceps and patellar tendons. No abnormal patellar tilt or subluxation on patellar sunrise view. Patellar fracture is not seen on the sunrise patellar view. IMPRESSION: Fractured lower pole of the patella. Electronically signed by: Say Unger MD 05/24/2018 9:30 AM CDT
--- NOTE | 2018-05-24 09:35 | RAD ---
Procedure: XR left SHOULDER 2 OR MORE VIEWS Exam Date: 05/24/2018 Ordering Provider: BONIFACIO DAVALOS Clinical Indication: trauma Comparison: None Findings/impression: Minimally displaced fracture involving the medial aspect of the neck of the left humerus. No other fracture or dislocation. Electronically signed by: Tj Escamilla MD 05/24/2018 9:34 AM CDT
[2018-05-24] MEDS ORDERED: HYDROCOD/APAP 5/325 (ER DISP) #3 TAB PO ONE (09:57)
[2018-05-24 10:11] VITALS: BP 134/76; O2SAT 98
[2018-05-24] MEDS ORDERED: HYDROcodone 5MG/APAP 325MG 1 EA TAB PO ONE (10:13)
[2018-05-24] MEDS ORDERED: HYDROcodone 5MG/APAP 325MG 1 EA TAB ONE (10:14)
== END 2018-05-24 10:31 | disposition home or self-care (01) ==
LOC: ER 08:46
DX: S42.212A Unspecified displaced fracture of surgical neck of left humerus, initial encounter for closed fracture (principal); S82.002A Unspecified fracture of left patella, initial encounter for closed fracture; M81.0 Age-related osteoporosis without current pathological fracture; W10.1XXA Fall (on)(from) sidewalk curb, initial encounter; Z85.43 Personal history of malignant neoplasm of ovary; Z79.899 Other long term (current) drug therapy; Y92.89 Other specified places as the place of occurrence of the external cause
CPT/HCPCS: 73030; 73560; J1885

== ENCOUNTER → 2018-05-31 | Outpatient (CLI) | payer OTHER ==
--- NOTE | 2018-05-31 11:19 | RAD ---
EXAM DESCRIPTION: Shoulder,Left 2 or More Views CLINICAL HISTORY: 63 years Female, PAIN IN LEFT ARM COMPARISON: None. FINDINGS: Three views of the left shoulder show a slightly displaced left humeral neck fracture likely extending into the left humeral head to the base of the greater tuberosity. The glenohumeral joint appears anatomically aligned. The left AC joint is unremarkable. No glenoid fracture is seen. IMPRESSION: Slightly displaced left humeral neck fracture with probable extension into the left humeral head. CT may be helpful for further evaluation. Electronically signed by: Lei Baker MD 05/31/2018 11:18 AM CDT
--- NOTE | 2018-05-31 11:20 | RAD ---
EXAM DESCRIPTION: Pelvis CLINICAL HISTORY: 63 years Female, PAIN IN LEFT HIP COMPARISON: None. FINDINGS: Single AP view of the pelvis shows no displaced pelvic fracture. The hip and sacroiliac joint spaces are fairly well maintained. The pubic symphysis is unremarkable. There is a surgical clip in the right lower quadrant of the abdomen. Soft tissue calcifications in the pelvis are likely of vascular origin. IMPRESSION: Negative exam. No apparent abnormality to explain left hip pain. Electronically signed by: Lei Baker MD 05/31/2018 11:19 AM CDT
--- NOTE | 2018-05-31 11:23 | RAD ---
EXAM DESCRIPTION: Knee,Left Complete CLINICAL HISTORY: 63 years Female, PAIN LEFT KNEE COMPARISON: May 24, 2018 FINDINGS: Four views of the left knee were obtained. There is cortical lucency involving the inferior patellar pole seen only on the lateral view, concerning for nondisplaced fracture, not significantly changed from the previous exam. No hemarthrosis or other joint fluid is identified. No prepatellar soft tissue swelling. No additional fracture or malalignment. The joint spaces are fairly well-maintained. IMPRESSION: Nondisplaced fracture involving the inferior patellar pole, not significantly changed from May 24, 2018. No new abnormality. Electronically signed by: Lei Baker MD 05/31/2018 11:22 AM CDT
== END ==
LOC: RAD 08:24
PROVIDERS: ATTEND Orthopaedic Surgery
DX: S42.202A Unspecified fracture of upper end of left humerus, initial encounter for closed fracture (principal); S82.002A Unspecified fracture of left patella, initial encounter for closed fracture; M25.552 Pain in left hip

== ENCOUNTER → 2018-06-10 | Outpatient (CLI) | payer OTHER ==
--- NOTE | 2018-06-11 09:12 | RAD ---
EXAM DESCRIPTION: KUB CLINICAL HISTORY: HX OF RENAL STONES COMPARISON: None Available. TECHNIQUE: KUB FINDINGS: Methacrylate is seen in the lower T-spine and upper L-spine. Gallbladder clips are present. No definite stones in the kidneys. Calcifications in the left lower pelvis are indeterminate and could be vascular calcifications or possibly distal ureteral stones. Patient had a previous CT abdomen and pelvis in December 2017 which showed left hydroureteronephrosis with calculi in the proximal left ureter. Tiny stones were seen in the left kidney. Stones in the proximal left ureter at that time measured approximately 6 mm and 4 mm. Patient is previous KUB February 25, 2018 which also showed similar pattern of pelvic calcifications. There may be slight further distal progression of the 2 ureteral stones which measure 3 mm and 5 mm on this study. IMPRESSION: Findings consistent with two distal left ureteral calculi. Electronically signed by: Say Unger MD 06/11/2018 9:11 AM CDT
== END ==
LOC: RAD 14:04
PROVIDERS: ATTEND Urology
DX: N20.1 Calculus of ureter (principal)

== ENCOUNTER → 2018-06-13 | Outpatient (CLI) | payer OTHER ==
--- NOTE | 2018-06-14 08:47 | RAD ---
EXAM DESCRIPTION: Knee, left Complete CLINICAL HISTORY: 63 years Female, FX TECHNIQUE: 2 views of the left knee were performed. COMPARISON: May 31 and May 24, 2018. FINDINGS: The visualized bones appear well mineralized. Again noted is cortical lucency involving the inferior patellar pole seen only on the lateral view, concerning for nondisplaced fracture, not significantly changed from the previous exam. No hemarthrosis or other joint fluid is identified. No prepatellar soft tissue swelling. No additional fracture or malalignment. The joint spaces are fairly well-maintained. Enthesopathy changes are noted at the insertion of the quadriceps tendon. IMPRESSION: 1. Persistent lucency involving the inferior patellar pole concerning for nondisplaced fracture, with no significant interval change since prior study from May 31, 2018. No significant callus formation noted. 2. No new acute fracture identified. Electronically signed by: Moncho Begum MD 06/14/2018 8:46 AM CDT
--- NOTE | 2018-06-14 08:53 | RAD ---
EXAM DESCRIPTION: Shoulder,Left 2 or More Views CLINICAL HISTORY: 63 years Female, FX COMPARISON: May 31, 2018. FINDINGS: 4 views of the left shoulder again demonstrates a slightly displaced left humeral neck fracture likely extending into the left humeral head to the base of the greater tuberosity. The glenohumeral joint appears anatomically aligned. The left AC joint is unremarkable. No glenoid fracture is seen.No significant interval change noted since prior exam from May 31. No evidence of callus formation noted. IMPRESSION: 1. Persistent slightly displaced left humeral neck fracture with no signs of interval healing in comparison to the radiograph from May 31, 2018. The glenohumeral joint is intact. Electronically signed by: Moncho Begum MD 06/14/2018 8:51 AM CDT
== END ==
LOC: RAD 09:15
PROVIDERS: ATTEND Orthopaedic Surgery
DX: S42.302D Unspecified fracture of shaft of humerus, left arm, subsequent encounter for fracture with routine healing (principal); S82.002D Unspecified fracture of left patella, subsequent encounter for closed fracture with routine healing

== ENCOUNTER → 2018-07-04 | Outpatient (CLI) | payer OTHER ==
--- NOTE | 2018-07-04 09:33 | RAD ---
EXAM DESCRIPTION: Knee,Left 2 or More Views CLINICAL HISTORY: UNSPECOFIED FRACTURE OF LEFT PATELLA COMPARISON: None June 2018 TECHNIQUE: 2 views left FINDINGS: Mild osteopenia is observed. The previously observed fracture of the patella is no longer delineated. A tiny joint effusion is seen. There is some calcification of the quadriceps insertion into the patella. IMPRESSION: The previously observed fracture of the patella is no longer delineated. A small joint effusion is evident. Electronically signed by: Edward Jean-Baptiste MD 07/04/2018 9:31 AM CDT
--- NOTE | 2018-07-04 09:35 | RAD ---
EXAM DESCRIPTION: Shoulder,Left 2 or More Views CLINICAL HISTORY: UNSPECOFIED FRACTURE OF SHAFT OF HUMERUS COMPARISON: None June 2018 TECHNIQUE: 3 views left FINDINGS: A surgical neck fracture is again delineated. Some callus formation is observed at the fracture site. The fracture line has become less distinct indicating healing. No evidence of dislocation is seen. IMPRESSION: Healing fracture of the surgical neck of the left proximal humerus. Electronically signed by: Edward Jean-Baptiste MD 07/04/2018 9:33 AM CDT
== END ==
LOC: RAD 08:22
PROVIDERS: ATTEND Orthopaedic Surgery
DX: S42.302D Unspecified fracture of shaft of humerus, left arm, subsequent encounter for fracture with routine healing (principal); S82.002D Unspecified fracture of left patella, subsequent encounter for closed fracture with routine healing

== ENCOUNTER → 2018-07-22 | Outpatient (CLI) | payer OTHER ==
--- NOTE | 2018-07-22 09:14 | RAD ---
EXAM DESCRIPTION: Radiographs of the left Shoulder: CLINICAL HISTORY: CLOSED FRACTURE OF HUMERUS COMPARISON: 07/04/2018. TECHNIQUE: AP internal external rotation images. Lateral "Y" image. FINDINGS: Left humeral head surgical neck fracture less distinct than on the prior study. Minimally decreased bone density. AC joint unremarkable. Glenohumeral joint intact. No abnormal radiodense objects in the soft tissues or joint spaces. tab IMPRESSION: Healing fracture of the surgical neck of the left humerus with minimal cortical displacement. Bone density is decreased. No new fractures. Electronically signed by: Hakan Alexander MD 07/22/2018 9:13 AM CDT
== END ==
LOC: RAD 08:09
PROVIDERS: ATTEND Orthopaedic Surgery
DX: S42.302D Unspecified fracture of shaft of humerus, left arm, subsequent encounter for fracture with routine healing (principal)

== ENCOUNTER → 2018-08-22 | Outpatient (CLI) | payer OTHER ==
--- NOTE | 2018-08-22 12:17 | RAD ---
EXAM DESCRIPTION: Shoulder,Left 2 or More Views CLINICAL HISTORY: CLOSED FRACTURE OF LEFT HUMERUS COMPARISON: May 24, 2018. FINDINGS: 2 views of the left shoulder. Deformity of the proximal surgical neck of the humerus is consistent with healed remote surgical neck fracture. Acute fractures demonstrated on today's study. Glenohumeral joint is maintained. AC joint is maintained. Visualized structures of the left hemithorax are unremarkable. Degenerative changes noted throughout the visualized cervical spine. Remote vertebral augmentation changes noted throughout the midthoracic spine. IMPRESSION: Healed old fracture deformity proximal left humerus. Osteoporosis. Electronically signed by: Joseph Saba MD 08/22/2018 12:16 PM CDT
== END ==
LOC: RAD 08:16
PROVIDERS: ATTEND Orthopaedic Surgery
DX: S42.302D Unspecified fracture of shaft of humerus, left arm, subsequent encounter for fracture with routine healing (principal)

== ENCOUNTER → 2019-01-22 | Outpatient (CLI) | payer OTHER ==
--- NOTE | 2019-01-23 13:09 | RAD ---
Study: 3 Views of the Left Foot. Indication: M79.672 Comparison: None. Impression: No acute fracture. Minimal osteoarthritis first MTP joint with mild bunion formation. Millimetric ossification plantar fascial origin. Electronically signed by: Ashkan Ocasio MD 01/23/2019 1:05 PM CDT
== END ==
LOC: RAD 13:50
PROVIDERS: ATTEND Orthopaedic Surgery
DX: M19.072 Primary osteoarthritis, left ankle and foot (principal); M21.612 Bunion of left foot

== ENCOUNTER → 2019-04-04 | Outpatient (CLI) | payer MEDICARE, BC | LOC: LAB.O 10:05 | PROVIDERS: ATTEND Internal Medicine Hematology & Oncology | DX: C7A.022 Malignant carcinoid tumor of the ascending colon (principal) ==

== ENCOUNTER → 2019-04-28 | Outpatient (CLI) | payer BC, MEDICARE ==
--- NOTE | 2019-04-28 16:17 | RAD ---
EXAM DESCRIPTION: Abdomen, 2 radiographs CLINICAL HISTORY: Renal Stones FINDINGS/ IMPRESSION: No stone over the kidneys ureters or bladder No organomegaly or obvious abdominal mass lesion Surgical clips from previous cholecystectomy. Previous vertebral plasty. Osteoporosis. Multilevel compression deformities Electronically signed by: Blane Hernández MD 04/28/2019 4:15 PM CDT
== END ==
LOC: RAD 14:21
PROVIDERS: ATTEND Urology
DX: N20.0 Calculus of kidney (principal); M81.0 Age-related osteoporosis without current pathological fracture

== ENCOUNTER → 2019-06-03 | Outpatient (CLI) | payer OTHER, MEDICARE, BC ==
--- NOTE | 2019-06-05 11:19 | MAM ---
EXAM DESCRIPTION: 3D Screening BILATERAL : Digital Mammography. CLINICAL HISTORY: 64 years Female ANNUAL SCREENING . No complaints or personal history of breast cancer. Personal history of ovarian cancer.. Childbirth. Hysterectomy 30+ years ago. HRT 5 or more years ago. Lifetime risk of developing breast cancer ( Tyrer-Cuzick model): 6.9%. COMPARISON: Bilateral screening digital breast tomosynthesis 04/17/2018.. TECHNIQUE: Bilateral CC and MLO projection full-field images, digital tomosynthesis mammographic technique. Bilateral digital 2-D full-field MLO images. CAD not available for tomosynthesis or 2-D images. FINDINGS: The breast parenchymal density pattern is: Heterogeneously dense breast tissue, which may obscure small masses. No skin thickening or nipple retraction. Left axillary lymph node not seen on the prior study. Bilateral solitary microcalcifications are stable. Bilateral vascular calcifications. No new focal, stellate mass or density, focal asymmetry , and no suspicious microcalcifications bilaterally. IMPRESSION: Benign exam. BIRAD CATEGORY: 2 BENIGN FINDINGS. RECOMMENDATIONS: FOLLOW UP: Routine digital bilateral mammographic screening, one year interval from May 2019. Written communication explaining the IMPRESSION and follow-up, will be mailed to the patient and referring health care provider. According to the [employer], yearly mammograms are recommended starting at age 40 and continuing as long as a woman is in good health. Any breast change noted on a breast self-exam should be reported promptly to the patient's healthcare provider. Breast MRI is recommended for women with an approximately 20-25% or greater lifetime risk of breast cancer, including women with a strong family history of breast or ovarian cancer and women who have been treated for Hodgkin's disease. A negative mammographic report should not delay tissue diagnosis in patients with significant clinical history or physical findings. Extremely dense breast tissue limits the sensitivity of digital mammography. Electronically signed by: Hakan Alexander MD 06/05/2019 11:17 AM CDT
== END ==
LOC: MAMMO 08:10
PROVIDERS: ATTEND Family Medicine
DX: Z12.31 Encounter for screening mammogram for malignant neoplasm of breast (principal)

== ENCOUNTER 2019-06-26 00:34 | Emergency (ER) | payer MEDICARE, BC ==
[2019-06-26 00:46] VITALS: TEMP 97.2
[2019-06-26] MEDS ORDERED: KETOROLAC TROMETHAMINE INJ 30 MG/ML VIAL IV ONE (00:51)
[2019-06-26] MEDS ORDERED: ONDANSETRON INJ 4 MG/2 ML VIAL IV ONE (00:52)
--- NOTE | 2019-06-26 00:55 | ED.PDOC ---
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 LAST WEEK [facility] HAD SHOWN BLOOD AND FEW WBC - History of Present Illness Timing/Duration: 1-3 hours Severity: moderate Improving Factors: nothing Worsening Factors: nothing Associated Symptoms: denies symptoms Allergies/Adverse Reactions: Allergies Penicillins Allergy (Intermediate, Verified 06/26/19 00:47) Sulfamethoxazole w/Trimethoprim [From Bactrim] Allergy (Intermediate, Verified 06/26/19 00:47) Morphine Allergy (Verified 06/26/19 00:47) Home Medications: Ambulatory Orders Docusate Sodium [Colace] 100 mg PO BEDTIME 05/23/17 HYDROcodone/IBUPROFEN 7.5/200 [Vicoprofen] 1 ea PO Q4H PRN 05/23/17 Methocarbamol [Robaxin] 750 mg PO Q4H PRN #30 tablet 05/23/17 Acetaminophen W/ Codeine [Tylenol W/ CODEINE #3] 1 - 2 ea PO TID PRN 4 Days #24 05/24/18 Acetamin W/Cod #3 Tab [Tylenol w/CODEINE #3] 1 ea PO Q6HR PRN #40 tab 06/26/19 Ketorolac Tromethamine [Toradol Tabs] 10 mg PO Q6HRS #10 tab 06/26/19 Promethazine Tab [Phenergan Tablet] 25 mg PO .Q4H #20 tab 06/26/19 Review of Systems - Review of Systems Constitutional: States: no symptoms reported EENTM: States: no symptoms reported Respiratory: States: no symptoms reported Cardiology: States: no symptoms reported Gastrointestinal/Abdominal: States: nausea, vomiting Genitourinary: States: see HPI Musculoskeletal: States: no symptoms reported Skin: States: no symptoms reported Neurological: States: no symptoms reported Endocrine: States: no symptoms reported Hematologic/Lymphatic: States: no symptoms reported Past Medical History (General) - Patient Medical History Hx Seizures: No Hx Stroke: No Hx Dementia: No Hx Asthma: No Hx of COPD: No Hx Cardiac Disorders: No Hx Congestive Heart Failure: No Hx Pacemaker: No Hx Hypertension: No Hx Thyroid Disease: No Hx Diabetes: No Hx Gastroesophageal Reflux: No Hx Renal Disease: Yes - hx of kidney stones Hx Cancer: Yes - ovarian, small intestine carcinoma Hx of HIV: No Hx Hepatitis C: No Hx MRSA: No Surgical History: cholecystectomy, Hysterectomy - Vaccination History Hx Tetanus, Diphtheria Vaccination: Yes Hx Influenza Vaccination: No Hx Pneumococcal Vaccination: No - Social History Hx Tobacco Use: No Hx Chewing Tobacco Use: No Hx Alcohol Use: No Hx Substance Use: No Hx Substance Use Treatment: No Hx Depression: No Hx Physical Abuse: No Hx Emotional Abuse: No Hx Suspected Abuse: No - Female History Patient : No Family Medical History - Family History Mother Family History: Unknown Hx Family Asthma: No Hx Family Congestive Heart Failure: No Hx Family Hypertension: No Hx Family Stroke: Yes Hx Cardiac Disease: No Hx Family Diabetes: No Hx Family Cancer: No Father Living Status: Hx Family Asthma: No Hx Family Congestive Heart Failure: No Hx Family Hypertension: No Hx Family Stroke: No Hx Cardiac Disease: Yes Hx Family Diabetes: No Hx Family Cancer: Yes Physical Exam - Physical Exam General Appearance: Alert, Ill Appearing Eye Exam: bilateral normal Ears, Nose, Throat: hearing grossly normal, normal ENT inspection, normal pharynx Neck: non-tender, full range of motion, supple Respiratory: chest non-tender, lungs clear, normal breath sounds, no respiratory distress, no accessory muscle use Cardiovascular/Chest: normal peripheral pulses, regular rate, rhythm, no edema, no gallop, no JVD, no murmur Peripheral Pulses: radial,right: 2+, radial,left: 2+, femoral,right: 2+, femoral,left: 2+ Gastrointestinal/Abdominal: normal bowel sounds, non tender, soft, no organomegaly, no pulsatile mass Back Exam: no CVA tenderness, no vertebral tenderness Extremity: normal range of motion, non-tender, normal inspection, no pedal edema Neurologic: dater assembler II-XII nml as tested, no motor/sensory deficits, alert, normal mood/affect, oriented x 3 Progress - Results/Orders Results/Orders: Laboratory Tests 06/26/19 06/26/19 06/26/19 00:50 01:00 01:50 WBC 9.1 RBC 4.71 Hgb 14.1 Hct 40.8 MCV 86.7 MCH 30.0 MCHC 34.6 RDW 13.5 Plt Count 250 MPV 8.7 Absolute Neuts (auto) 6.80 Absolute Lymphs (auto) 1.50 Absolute Monos (auto) 0.70 Absolute Eos (auto) 0.00 Absolute Basos (auto) 0.00 Neutrophils % 74.1 Lymphocytes % 17.0 L Monocytes % 8.0 Eosinophils % 0.5 L Basophils % 0.4 Sodium 137 Potassium 3.4 L Chloride 103 Carbon Dioxide 22 Anion Gap 15.4 BUN 20 H Creatinine 0.88 BUN/Creatinine Ratio 22.7 H Random Glucose 121 H Serum Osmolality 277.7 Calcium 9.1 Total Bilirubin 0.4 AST 26 ALT 18 Alkaline Phosphatase 77 Serum Total Protein 7.9 Albumin 4.2 Globulin 3.7 H Albumin/Globulin Ratio 1.1 Urine Color Yellow Urine Appearance Sl cloudy Urine pH 6.0 Ur Specific [place] 1.020 Urine Protein Negative Urine Glucose (UA) Negative Urine Ketones Negative Urine Blood Small H Urine Nitrite Negative Urine Bilirubin Negative Urine Urobilinogen 0.2 Ur Leukocyte Esterase Small H Urine RBC 3-5 H Urine WBC 5-10 H Ur Epithelial Cells 0-1 Urine Bacteria Rare Departure - Departure Clinical Impression: Renal colic on left side Time of Disposition: 02:20 Disposition: Discharge to Home or Self Care Departure Forms: ED Discharge - Pt. Copy, Patient Portal Self Enrollment Referrals: VIVIANA CASTRO MD [Primary Care Provider] - 1-2 Weeks Prescriptions: Acetamin W/Cod #3 Tab [Tylenol w/CODEINE #3] 1 ea PO Q6HR PRN #40 tab PRN Reason: Mild To Moderate Pain Ketorolac Tromethamine [Toradol Tabs] 10 mg PO Q6HRS #10 tab Promethazine Tab [Phenergan Tablet] 25 mg PO .Q4H #20 tab Home Medications: Ambulatory Orders Docusate Sodium [Colace] 100 mg PO BEDTIME 05/23/17 HYDROcodone/IBUPROFEN 7.5/200 [Vicoprofen] 1 ea PO Q4H PRN 05/23/17 Methocarbamol [Robaxin] 750 mg PO Q4H PRN #30 tablet 05/23/17 Acetaminophen W/ Codeine [Tylenol W/ CODEINE #3] 1 - 2 ea PO TID PRN 4 Days #24 05/24/18 Acetamin W/Cod #3 Tab [Tylenol w/CODEINE #3] 1 ea PO Q6HR PRN #40 tab 06/26/19 Ketorolac Tromethamine [Toradol Tabs] 10 mg PO Q6HRS #10 tab 06/26/19 Promethazine Tab [Phenergan Tablet] 25 mg PO .Q4H #20 tab 06/26/19 Additional Instructions: FOLLOW UP WITH YOUR UROLOGIST
[2019-06-26] MEDS ORDERED: SODIUM CHLORIDE 0.9% 1000ML 1,000 ML IVS ONE (01:00)
[2019-06-26] MEDS ORDERED: SODIUM CHLORIDE 0.9% 1000ML 1,000 ML ONE (01:02)
--- NOTE | 2019-06-26 01:36 | CT ---
PROCEDURE: CT Abdomen/Pelvis w/o Contrast CLINICAL HISTORY: 64 years Female RENAL COLIC LEFT TECHNIQUE: Contiguous axial images obtained through the abdomen and pelvis without IV contrast. Coronal and sagittal reformatted images provided. This CT exam was performed according to our departmental dose-optimization program, which includes one or more of the following dose reduction techniques: automated exposure control, adjustment of the mA and/or kV according to patient size, and/or use of iterative reconstruction technique. COMPARISON: Correlation made with the prior CT scans dated 01/01/2018 and 05/04/2016. FINDINGS: There is moderate left hydroureteronephrosis and perinephric stranding due to a 3 mm calculus in the left distal ureter. There are a few punctate nonobstructing intrarenal calculus on the right. No other urinary calculi. No right-sided hydronephrosis. Stable left pelvic phlebolith. Prior cholecystectomy without biliary dilatation. Prior right hemicolectomy and hysterectomy. In the left lobe of the liver, there is a 3 cm lobulated focus of low attenuation. This is demonstrated to represent a hemangioma on the 2016 exam. The pancreas, spleen, adrenal glands, and urinary bladder are normal. There is no bowel inflammation, obstruction, free intraperitoneal air, or ascites. Atherosclerosis without abdominal aortic aneurysm or retroperitoneal hemorrhage. Osteoporosis with prior T12-L2 vertebroplasties. No visualized acute fracture in the abdomen or pelvis. IMPRESSION: Moderate left hydroureteronephrosis and perinephric stranding due to a 3 mm calculus in the left distal ureter. Punctate nonobstructing intrarenal calculi on the right. Electronically signed by: Mayelin Astorga MD 06/26/2019 1:35 AM CDT
[2019-06-26 02:17] VITALS: BP 149/95; O2SAT 97
== END 2019-06-26 02:29 | disposition home or self-care (01) ==
LOC: ER 00:34
DX: N13.2 Hydronephrosis with renal and ureteral calculous obstruction (principal); Z90.49 Acquired absence of other specified parts of digestive tract; Z85.43 Personal history of malignant neoplasm of ovary; Z85.060 Personal history of malignant carcinoid tumor of small intestine; Z88.0 Allergy status to penicillin; Z88.5 Allergy status to narcotic agent; Z88.2 Allergy status to sulfonamides
CPT/HCPCS: 74176; 80053; 81001; 85025; 87086; J1885; J2405; J7030

== ENCOUNTER → 2019-07-10 | Outpatient (CLI) | payer MEDICARE, BC ==
--- NOTE | 2019-07-11 08:16 | CT ---
EXAM DESCRIPTION: Abdomen/Pelvis w/wo Contrast: Computed Tomography. CLINICAL HISTORY: MICRO HEMATURIA COMPARISON: CT abdomen and pelvis without contrast 06/26/2019. CT abdomen and pelvis December 2017. TECHNIQUE: Spiral-axial scans at 5 x 5 mm intervals through the abdomen and pelvis before and after 75 mL Optiray 320 nonionic IV contrast. No oral contrast. Coronal and sagittal 2.0 mm reconstructions. 5 mm Delayed helical-axial scans, liver through the pubic symphysis. No adverse reactions. Total Exam DLP 1387.06 mGy - cm. This exam was performed according to our departmental CT dose-optimization program which includes automated exposure control, adjustment of the mA and/or kV according to patient size and/or use of iterative reconstruction technique; to reduce radiation dose to as low as reasonably achievable (ALARA). FINDINGS: Kidneys and Ureters: 2 mm radiodense stone in the inferior collecting system. Stable since the prior study. Similar sized stone in the upper inferior collecting system also stable. No hydronephrosis right kidney. No radiodense stones in the left kidney. Trace to mild hydronephrosis on the left than on the right. 1 cm cyst posterior upper pole cortex right kidney. Less than 5 mm cyst lateral cortex lower pole left kidney. The caliber of the left ureter is upper limits of normal containing no contrast on the delayed images. The 4 mm stone which was in the distal left ureter on the prior study is now in the left UVJ. No contrast in the left ureter on the delayed images. Right ureter unremarkable. Urinary bladder: Contracted. 4 mm stone in the left UVJ. No radiodense stones in the bladder or the right UVJ. No contrast in the urinary bladder on the 5 minute delayed image. Lung bases and pleura: Negative. Liver, Stomach, Spleen, Adrenal Glands: 8 mm low-density cyst posterior dome right hepatic lobe. Long axis right lobe 18.5 cm. Regions of low-density or partial enhancement in the posterior aspect of the right inferior lobe on axial series 4, images 23-25 Pancreas, Gallbladder, Ducts: Surgical clips gallbladder fossa with no fluid. Mesentery: Unremarkable. Aorta: Atherosclerotic calcifications. Small Bowel: Fluid in the distal small bowel but no large air-fluid levels or significant distention. Anastomosis with the transverse colon in the midline of the mid abdomen with no evidence of obstruction mass or abnormal density. Terminal Ileum/Cecum: Surgically absent. No retroperitoneal mass. Colon: Fecal anterior air level at the anastomosis with fecal material extending to the mid descending colon. Minimally redundant sigmoid colon. Pelvic Organs: Uterus and ovaries not seen. Vaginal cuff negative. Spine and Bony Pelvis: Previous vertebral plasty L2, L1, and T12 with minimal compression. Superior endplate L1 retropulsion. Decreased bone density. Narrowed superior lateral hip joint spaces with minimal femoral head over coverage by superior lateral acetabula facets. Abdominal Wall/Back Soft Tissues: Minimal diastases at the umbilicus with the distended proximal transverse colon and abutting the subdermal surface but no bowel hernia. IMPRESSION: 1. 4 mm radiodense stone in the distal ureter on the prior study now in the left UVJ. Caliber of the left ureter upper normal limits. Trace hydronephrosis left kidney. At least 2 stones 2 mm in diameter in the inferior collecting system of the right kidney with no hydronephrosis. Right ureter is unremarkable. 2. Ill-defined small decreased densities pre and postcontrast inferior aspect of the inferior segment liver stable since the CT scan of the liver in December 2017. 3. Stable appearance of small bowel to transverse colon anastomosis in the midline of the mid abdomen. 4. Mild bilateral over coverage of the acetabular superior lateral grams of the femoral heads, possible femoral acetabular impingement, stable since the prior study. Consider orthopedic surgery consult if patient symptomatic. Decreased bone density. Consider osteoporosis screening test including DEXA. Electronically signed by: Hakan Alexander MD 07/11/2019 8:15 AM CDT
== END ==
LOC: CT 11:00
PROVIDERS: ATTEND Urology
DX: N13.2 Hydronephrosis with renal and ureteral calculous obstruction (principal); N21.1 Calculus in urethra; K76.9 Liver disease, unspecified; Z98.0 Intestinal bypass and anastomosis status

== ENCOUNTER → 2019-07-21 | Outpatient (CLI) | payer MEDICARE, BC ==
--- NOTE | 2019-07-22 15:44 | RAD ---
EXAM DESCRIPTION: KUB CLINICAL HISTORY: 64 years Female, KIDNEY STONES COMPARISON: July 10, 2019 Findings: Multilevel vertebral augmentation. Cholecystectomy clips. Multilevel lumbar spondylosis. Osteopenia. Degenerative changes of the hips and sacroiliac joints. Nonobstructive bowel gas pattern. The previously identified small calcifications associated with the right kidney are not seen radiographically. The previously identified left ureteral stone is no longer seen, or is not seen radiographically. Left pelvic phlebolith. IMPRESSION: No suspicious calcification identified radiographically. Electronically signed by: Rashard Mahoney MD 07/22/2019 3:42 PM CDT
== END ==
LOC: RAD 13:51
PROVIDERS: ATTEND Urology
DX: N20.0 Calculus of kidney (principal)

== ENCOUNTER → 2019-08-13 | Outpatient (CLI) | payer MEDICARE | LOC: LAB.O 11:36 | PROVIDERS: ATTEND Internal Medicine | DX: M81.0 Age-related osteoporosis without current pathological fracture (principal); E55.9 Vitamin D deficiency, unspecified ==